=== PATIENT | female | born 1955 | race Two or more races ===

== ENCOUNTER 2020-03-20 13:46 | Outpatient (CLI) | payer OTHER | END 2020-03-20 14:05 | disposition home or self-care (01) | LOC: SONOGRAMA 13:46 | PROVIDERS: ATTEND Surgery | DX: E04.2 Nontoxic multinodular goiter (principal); E21.0 Primary hyperparathyroidism ==

== ENCOUNTER 2020-04-09 10:00 | Outpatient (CLI) | payer OTHER | END 2020-04-09 10:09 | disposition home or self-care (01) | LOC: RX STUDY 10:00 | PROVIDERS: ATTEND Otolaryngology | DX: R13.19 Other dysphagia (principal); K21.00 Gastro-esophageal reflux disease with esophagitis, without bleeding ==

== ENCOUNTER 2020-05-07 14:57 | Inpatient (IN) | payer OTHER ==
[~2020-05-07] VITALS: Ht 152.4 cm; Wt 61.7 kg
[2020-05-08] MEDS ORDERED: COZAAR100 MG PO (11:08)
[2020-05-08] MEDS ORDERED: AMLODIPINE PO (11:08)
[2020-05-08] MEDS ORDERED: PROTONIX PO (11:09)
[2020-05-08] MEDS ORDERED: PEPCID PO (11:09)
[2020-05-14] MEDS ORDERED: FAMOTIDINE40 MG (08:39)
[2020-05-14] MEDS ORDERED: ALENDRONATE SOD70 MG (08:39)
[2020-05-14] MEDS ORDERED: PANTOPRAZOLE SO40 MG (08:39)
[2020-05-14] MEDS ORDERED: AMLODIPINE BESY10 MG (08:39)
== END 2020-05-15 10:05 | disposition home or self-care (01) | DRG 627 ==
LOC: O/R 05-14 05:15 → SURH 05-14 07:00
PROVIDERS: ADMIT Surgery; ATTEND Surgery
PROC: 0GBL0ZZ Excision of Right Superior Parathyroid Gland, Open Approach (ICD-10-PCS; principal; 2020-05-14 07:00)
DX: E21.0 Primary hyperparathyroidism (principal); I10 Essential (primary) hypertension; K21.9 Gastro-esophageal reflux disease without esophagitis